=== PATIENT | male | born 1980 | race Two or more races ===

== ENCOUNTER 2023-03-20 06:10 | Emergency (ER) | payer OTHER ==
[2023-03-20] MEDS ORDERED: methylPREDNISolone Sodium Succinate 125 MG/2 ML SDV IVPUSH ONE (07:03)
[2023-03-20] MEDS ORDERED: Ketorolac 30 MG/ML SDV IVPUSH ONE (07:03)
[2023-03-20] MEDS ORDERED: Diazepam 5 MG Tab PO ONE (07:03)
[2023-03-20] MEDS ORDERED: Morphine 4 MG/ML Syringe IVPUSH ONE (08:20)
[2023-03-20] MEDS ORDERED: Lidocaine 4% 1 each Patch TOP STA (09:25)
== END 2023-03-20 09:51 | disposition home or self-care (01) ==
LOC: MW.ED 06:10
DX: M54.9 Dorsalgia, unspecified (principal)
CPT/HCPCS: 96374; 96375; 99283; A9270; J1885; J2270; J2930